=== PATIENT | male | born 1955 | race Caucasian/White ===

== ENCOUNTER 2017-03-25 05:10 | Day surgery (SDC) | payer BC ==
[2017-03-24 09:29] LABS: HEMATOCRIT 44.5 % (42.0-54.0); HEMOGLOBIN 14.9 g/dL (13.5-17.5); MCHC 33.5 g/dL (31.0-37.0); MCV 92.7 fL (80.0-100.0); MEAN PLATELET VOLUME 9.9 fL (7.4-10.4); RBC 4.8 10x6/uL (4.20-6.10); RDW 13.5 % (11.5-14.5); WBC 12.2 10x3/uL (4.8-10.8)
[2017-03-24 09:40] LABS: APTT 27.8 SECONDS (22.8-39.4); INR 0.94 (0.85-1.17); PROTIME 12.2 SECONDS (11.6-15.0)
[2017-03-24 09:43] LABS: ALBUMIN 3.6 g/dL (3.4-5.0); ALKALINE PHOSPHATASE 92 U/L (46-116); ALT (SGPT) 19 U/L (10-68); CALC OSMOLALITY 276 mosm/kg (275-300); CALCIUM 10.4 mg/dL (8.5-10.1); CARBON DIOXIDE 32.2 mmol/L (21.0-32.0); CHLORIDE - SERUM 102 mmol/L (98-107); CREATININE - SERUM 0.9 mg/dL (0.6-1.3); GLUCOSE 77 mg/dL (74-106); POTASSIUM - SERUM 4.9 mmol/L (3.5-5.1); PROTEIN - SERUM 7.9 g/dL (6.4-8.2); SODIUM 138 mmol/L (136-145); UREA NITROGEN 17 mg/dL (7-18); eGFR NON AFRICAN AMERICAN > 90 mL/min (90-120)
[~2017-03-25] VITALS: Ht 180.3 cm; Wt 83.9 kg
[~2017-03-25 05:10] MED LIST: LIALDA1.2 G PO
[2017-03-25 11:01] VITALS: BP 147/84; Ht 180.3 cm; Wt 83.9 kg
[2017-03-25] MEDS ORDERED: ULTRAM50 MG PO (14:25)
== END 2017-03-25 16:50 | disposition home or self-care (01) ==
LOC: D.OPS 05:10 → D.PAN 12:30 → D.OPS 16:50
PROVIDERS: Anesthesiology
DX: K40.20 Bilateral inguinal hernia, without obstruction or gangrene, not specified as recurrent (principal); F17.200 Nicotine dependence, unspecified, uncomplicated; I10 Essential (primary) hypertension; F11.20 Opioid dependence, uncomplicated; Z01.812 Encounter for preprocedural laboratory examination

== ENCOUNTER 2020-07-30 17:21 | Emergency (ER) | payer BC ==
[~2020-07-30] VITALS: Ht 180.3 cm; Wt 86.4 kg
[~2020-07-30 17:21] MED LIST changes: +ULTRAM50 MG PO
[2020-07-30 17:24] VITALS: BP 176/89; Ht 180.3 cm; Wt 86.4 kg
[2020-07-30] MEDS ORDERED: CHOLESTEROL MED? (17:28)
[2020-07-30] MEDS ORDERED: CRESTOR20 MG PO (17:43)
[2020-07-30] MEDS ORDERED: SILDENAFIL 50 MG (17:45)
== END 2020-07-30 19:00 | disposition home or self-care (01) ==
LOC: D.ER 17:21
DX: T63.001A Toxic effect of unspecified snake venom, accidental (unintentional), initial encounter (principal)